=== PATIENT | male | born 1950 | race Caucasian/White ===

== ENCOUNTER 2017-01-29 18:46 | Emergency (ER) | payer OTHER ==
--- NOTE | 2017-01-29 19:22 | EDM.PDOC ---
ED HPI GENERAL MEDICAL PROBLEM - General Chief Complaint: Upper Extremity Injury/Pain Stated Complaint: UPPER L ARM PAIN Time Seen by Provider: 01/29/17 19:01 Source of Information: Reports: Patient, Family (), RN Notes Reviewed History Limitations: Reports: Physical Impairment (Hard of hearing) - History of Present Illness INITIAL COMMENTS - FREE TEXT/NARRATIVE: The patient states that he developed left biceps pain, sudden onset around 17: 00 tonight while playing a game on a computer. He describes it as a "bothersome pain" or "achy". He states that it is a pain, not discomfort. It is constant, however, he states that it has decreased since arriving to the ED, and is now minimal. He denies having any associated nausea, dyspnea, or sense of impending doom, but he states that he had diaphoresis while eating dinner. The patient states that he did not try any home treatments or remedies. The patient states that he has had similar symptoms previous to, but they are usually brief. He does not know how long he has had these symptoms. The patient's PCP is Yovana Chapin. Left Arm Pain Score (Numeric/FACES): 6 - Related Data Allergies Allergy/AdvReac Type Severity Reaction Status Date / Time statin drugs Allergy Muscle Uncoded 01/29/17 18:55 Aches Home Meds: Home Meds Aspirin [Halfprin] 81 mg PO DAILY 01/29/17 [History] Fish Oil/[place]-3 Fatty Acids [Fish Oil] 1,000 mg PO BID 01/29/17 [History] Gemfibrozil [Gemfibrozil] 600 mg PO BID 01/29/17 [History] Losartan/Hydrochlorothiazide [Losartan-HCTZ 100-25 MG] 1 tab PO DAILY 01/29/17 [ History] Omeprazole 20 mg PO DAILY 01/29/17 [History] Saxagliptin HCl [Onglyza] 2.5 mg PO DAILY 01/29/17 [History] Past Medical History Cardiovascular History: Reports: High Cholesterol, Hypertension Gastrointestinal History: Reports: GERD Genitourinary History: Reports: Renal Calculus Endocrine/Metabolic History: Reports: Diabetes, Type II Oncologic (Cancer) History: Reports: Prostate - Past Surgical History Musculoskeletal Surgical History: Reports: Other (See Below) (Right knee, open) Oncologic Surgical History: Reports: Other (See Below) (Radical prostatectomy) Social & Family History - Tobacco Use Smoking Status *Q: Never Smoker - Alcohol Use Alcohol Use History: Yes Alcohol Use Frequency: Socially - Recreational Drug Use Recreational Drug Use: No - Living Situation & Occupation Living situation: Reports: , with Spouse, with Family (Son) Occupation: Employed ([employer]) Review of Systems - Review of Systems Review Of Systems: See Below Constitutional: Reports: No Symptoms Eyes: Reports: No Symptoms Ears: Reports: No Symptoms Nose: Reports: No Symptoms Mouth/Throat: Reports: No Symptoms Respiratory: Reports: No Symptoms Cardiovascular: Reports: No Symptoms GI/Abdominal: Reports: No Symptoms Genitourinary: Reports: No Symptoms Musculoskeletal: Reports: No Symptoms Skin: Reports: No Symptoms Neurological: Reports: No Symptoms Psychiatric: Reports: No Symptoms ED EXAM, GENERAL - Physical Exam Exam: See Below Exam Limited By: No Limitations General Appearance: Alert, WD/WN, No Apparent Distress Eye Exam: Bilateral Eye: Normal Inspection Ears: Normal External Exam, Hearing Grossly Normal Nose: Normal Inspection, No Blood Throat/Mouth: Normal Inspection, Normal Lips, Normal Voice, No Airway Compromise Head: Atraumatic, Normocephalic Neck: Normal Inspection, Full Range of Motion Respiratory/Chest: No Respiratory Distress, Lungs Clear, Normal Breath Sounds, No Accessory Muscle Use Cardiovascular: Normal Peripheral Pulses, Regular Rate, Rhythm, No Gallop, No JVD, No Murmur, No Rub Peripheral Pulses: 4+: Radial (L), Radial (R) GI/Abdominal: Normal Bowel Sounds, Soft, Non-Tender, No Organomegaly, No Distention, No Abnormal Bruit, No Mass (Male) Exam: Deferred Rectal (Males) Exam: Deferred Back Exam: Normal Inspection, Full Range of Motion, NT Extremities: Normal Inspection, Normal Range of Motion, No Pedal Edema, Normal Capillary Refill, Other (The patient's left biceps muscle is tender, but he states that it is not the same sensation that brings him in.) Neurological: Alert, Oriented, Normal Cognition, No Motor/Sensory Deficits Psychiatric: Normal Affect Skin Exam: Warm, Dry, Intact, Normal Color, No Rash EKG INTERPRETATION EKG Date: 01/29/17 Time: 18:53 Rhythm: NSR Rate (Beats/Min): 63 Admire: Normal P-Wave: Present QRS: Normal ST-T: Normal QT: Normal Comparison: NA - No Prior EKG EKG Interpretation Comments: Repeat ECG at 91:25: Sinus bradycardia at [address] or T wave changes. No LAD. No LVH. No intraventricular conduction delays. No significant change from earlier ECG 01/29/2017 at 18:53. Course - Vital Signs Last Recorded V/S: Last Vital Signs Temp 36.9 C 01/29/17 18:55 Pulse 62 01/29/17 18:55 Resp 15 01/29/17 18:55 BP 127/73 01/29/17 18:55 Pulse Ox 98 01/29/17 18:55 - Orders/Labs/Meds Orders: Active Orders 24 hr Category Date Time Status EKG Documentation Completion [RC] STAT Care 01/29/17 19:02 Active EKG Documentation Completion [RC] STAT Care 01/29/17 21:15 Active Chest 2V [CR] Stat Exams 01/29/17 19:16 Taken Labs: Laboratory Tests 01/29/17 01/29/17 01/29/17 Range/Units 19:50 19:50 19:50 WBC 7.18 (4.23-9.07) K/mm3 RBC 4.22 L (4.63-6.08) M/mm3 Hgb 12.7 L (13.7-17.5) gm/L Hct 38.9 L (40.1-51.0) % MCV 92.2 (79.0-92.2) fl MCH 30.1 (25.7-32.2) pg MCHC 32.6 (32.2-35.5) g/dl RDW Std Deviation 43.5 (35.1-43.9) fL Plt Count 303 (163-337) K/mm3 MPV 9.9 (9.4-12.3) fl Neutrophils % (Manual) 68 H (40-60) % Band Neutrophils % 0 (0-10) % Lymphocytes % (Manual) 20 (20-40) % Atypical Lymphs % 0 % Monocytes % (Manual) 7 (2-10) % Eosinophils % (Manual) 5 (0.8-7.0) % Basophils % (Manual) 0 L (0.2-1.2) Platelet Estimate Adequate RBC Morph Comment Normal PT 12.1 (8.0-13.0) SECONDS INR 1.10 APTT 23 (22-36) SECONDS D-Dimer, Quantitative 0.27 (0.19-0.59) mg/L Sodium 142 (136-145) mEq/L Potassium 3.9 (3.5-5.1) mEq/L Chloride 103 (98-107) mEq/L Carbon Dioxide 30 (21-32) mEq/L Anion Gap 12.9 (5-15) BUN 23 H (7-18) mg/dL Creatinine 1.2 (0.7-1.3) mg/dL Est Cr Clr Drug Dosing 64.21 mL/min Estimated GFR (MDRD) > 60 (>60) mL/min BUN/Creatinine Ratio 19.2 H (14-18) Glucose 144 H (80-115) mg/dL Calcium 9.9 (8.5-10.1) mg/dL Total Bilirubin 0.3 (0.2-1.0) mg/dL AST 28 (15-37) U/L ALT 30 (16-63) U/L Alkaline Phosphatase 59 (46-116) U/L Troponin I < 0.017 (0.00-0.056) ng/mL NT-Pro-B Natriuret Pep 37 (0-125) pg/mL Total Protein 7.5 (6.4-8.2) g/dl Albumin 3.9 (3.4-5.0) g/dl Globulin 3.6 gm/dL Albumin/Globulin Ratio 1.1 (1-2) 10/10/17 Range/Units 21:30 WBC (4.23-9.07) K/mm3 RBC (4.63-6.08) M/mm3 Hgb (13.7-17.5) gm/L Hct (40.1-51.0) % MCV (79.0-92.2) fl MCH (25.7-32.2) pg MCHC (32.2-35.5) g/dl RDW Std Deviation (35.1-43.9) fL Plt Count (163-337) K/mm3 MPV (9.4-12.3) fl Neutrophils % (Manual) (40-60) % Band Neutrophils % (0-10) % Lymphocytes % (Manual) (20-40) % Atypical Lymphs % % Monocytes % (Manual) (2-10) % Eosinophils % (Manual) (0.8-7.0) % Basophils % (Manual) (0.2-1.2) Platelet Estimate RBC Morph Comment PT (8.0-13.0) SECONDS INR APTT (22-36) SECONDS D-Dimer, Quantitative (0.19-0.59) mg/L Sodium (136-145) mEq/L Potassium (3.5-5.1) mEq/L Chloride (98-107) mEq/L Carbon Dioxide (21-32) mEq/L Anion Gap (5-15) BUN (7-18) mg/dL Creatinine (0.7-1.3) mg/dL Est Cr Clr Drug Dosing mL/min Estimated GFR (MDRD) (>60) mL/min BUN/Creatinine Ratio (14-18) Glucose (80-115) mg/dL Calcium (8.5-10.1) mg/dL Total Bilirubin (0.2-1.0) mg/dL AST (15-37) U/L ALT (16-63) U/L Alkaline Phosphatase (46-116) U/L Troponin I < 0.017 (0.00-0.056) ng/mL NT-Pro-B Natriuret Pep (0-125) pg/mL Total Protein (6.4-8.2) g/dl Albumin (3.4-5.0) g/dl Globulin gm/dL Albumin/Globulin Ratio (1-2) - Re-Assessments/Exams Free Text/Narrative Re-Assessment/Exam: 01/29/17 21:02 Two-view chest radiograph appears to be grossly normal. Cardiac silhouette is within normal limits. No pulmonary vascular congestion. No pleural effusions. No focal infiltrate. No pneumothorax. Formal read per the Radiologist pending. 01/29/17 21:15 The patient's initial workup is unremarkable, with exception of a blood glucose mildly elevated 144, however, the patient has a known history of diabetes. I would like to make sure that the patient's left bicep pain does not represent an unusual cardiac presentation, therefore I have ordered a second troponin, now over 4 hours past the onset of the symptoms, along with a repeat ECG. If these are both negative, then the patient may safely be discharged home. 01/29/17 22:13 Test results discussed with the patient is white. His workup is entirely unremarkable, with exception of, as above, his blood glucose being mildly elevated at 144. The patient states that he rarely checks his blood sugar - the last time was or Saturday, and was 93. The patient's left arm pain does not appear to be cardiac in etiology, although , since the patient has diabetes, I'm recommending that he follow up with his PCP to discuss the option of an outpatient stress test. Departure - Departure Time of Disposition: 22:14 Disposition: Home, Self-Care 01 Condition: Good Clinical Impression: Left upper arm pain - Discharge Information Referrals: Yovana Chapin PA-C [Primary Care Provider] - Forms: ED Department Discharge Additional Instructions: You were seen in the emergency room for left upper arm pain. Workup in the ER included blood work, 2 sets of heart enzymes, a chest x-ray, and 2 ECGs. With the exception of your blood sugar being elevated at 144, the remainder of your workup was entirely unremarkable. Because of your left upper arm pain is MOST LIKELY a muscle strain, but since you have diabetes, you should talk to your PCP, Ms. Chapin, about getting a stress test. If any other problems, please do not hesitate to return to the ER. - My Orders Last 24 Hours: My Active Orders 01/29/17 19:02 EKG Documentation Completion [RC] STAT 01/29/17 19:16 Chest 2V [CR] Stat 01/29/17 21:15 EKG Documentation Completion [RC] STAT - Assessment/Plan Last 24 Hours: My Active Orders 01/29/17 19:02 EKG Documentation Completion [RC] STAT 01/29/17 19:16 Chest 2V [CR] Stat 01/29/17 21:15 EKG Documentation Completion [RC] STAT
--- NOTE | 2017-01-30 08:22 | CR ---
Chest: Two views of the chest were obtained. Comparison: Previous chest x-ray of 10/18/11. Heart size and mediastinum are normal. Lungs are clear. Bony structures are within normal limits. Impression: 1. Nothing acute is appreciated on two-view chest x-ray. Diagnostic code #2
== END 2017-01-29 22:26 | disposition home or self-care (01) ==
LOC: JD.ED 18:46
DX: M79.622 Pain in left upper arm (principal); I10 Essential (primary) hypertension; E78.00 Pure hypercholesterolemia, unspecified; K21.9 Gastro-esophageal reflux disease without esophagitis; E11.9 Type 2 diabetes mellitus without complications; Z98.890 Other specified postprocedural states; Z85.46 Personal history of malignant neoplasm of prostate; Z90.79 Acquired absence of other genital organ(s); Z79.82 Long term (current) use of aspirin; Z79.899 Other long term (current) drug therapy; Z88.8 Allergy status to other drugs, medicaments and biological substances
CPT/HCPCS: 36415; 71020; 71020-26; 80053; 83880; 84484; 85025; 85379; 85610; 85730; 93005; 93010; 99284-25

== ENCOUNTER 2020-03-26 15:09 | Emergency (ER) | payer MEDICARE, BC ==
--- NOTE | 2020-03-26 16:31 | EDM.PDOC ---
ED HPI GENERAL MEDICAL PROBLEM - General Chief Complaint: Abdominal Pain Stated Complaint: LOW ABDOMINAL AND BACK PAIN Time Seen by Provider: 03/26/20 16:21 - History of Present Illness INITIAL COMMENTS - FREE TEXT/NARRATIVE: 69-year-old male presents the emergency room with abdominal pain. Patient has had generalized abdominal pain and back pain. This is not associated with nausea vomiting or diarrhea. He has had some mild constipation. Has not had any fevers or chills. The patient has been evaluated for this in the past and nothing has really been found on his work-ups. This was several years ago got better on its own. Lower Abdomen Pain Score (Numeric/FACES): 7 - Related Data Allergies Allergy/AdvReac Type Severity Reaction Status Date / Time atorvastatin AdvReac Muscle Verified 03/26/20 15:20 Aches pravastatin AdvReac Muscle Verified 03/26/20 15:20 Aches rosuvastatin AdvReac Muscle Verified 03/26/20 15:20 Aches Home Meds: Home Meds Aspirin [Halfprin] 81 mg PO DAILY 01/29/17 [History] Fish Oil/[place]-3 Fatty Acids [Fish Oil] 1,000 mg PO BID 01/29/17 [History] Gemfibrozil 600 mg PO BID 01/29/17 [History] Iron 18 mg PO DAILY 03/26/20 [History] Losartan/Hydrochlorothiazide [Losartan-HCTZ 100-25 MG] 1 each PO DAILY 03/26/20 [History] Multivitamin/Iron/Folic Acid [Cent[place] Complete Multivit] 1 each PO DAILY 03/26/20 [History] metFORMIN [Glucophage] 500 mg PO DAILY 03/26/20 [History] Past Medical History HEENT History: Reports: Impaired Vision Cardiovascular History: Reports: High Cholesterol, Hypertension Gastrointestinal History: Reports: GERD Genitourinary History: Reports: Renal Calculus Endocrine/Metabolic History: Reports: Diabetes, Type II Oncologic (Cancer) History: Reports: Prostate - Past Surgical History Musculoskeletal Surgical History: Reports: Other (See Below) Oncologic Surgical History: Reports: Other (See Below) Social & Family History - Tobacco Use Tobacco Use Status *Q: Never Tobacco User - Recreational Drug Use Recreational Drug Use: No - Living Situation & Occupation Living situation: Reports: , with Spouse, with Family (Son) Occupation: Employed ([employer]) ED ROS GENERAL - Review of Systems Review Of Systems: See Below Constitutional: Reports: No Symptoms HEENT: Reports: No Symptoms Respiratory: Reports: No Symptoms, Cough GI/Abdominal: Reports: Abdominal Pain, Constipation. Denies: Diarrhea, Nausea, Vomiting : Reports: No Symptoms Musculoskeletal: Reports: Back Pain (Vague) ED EXAM, GI/ABD - Physical Exam Exam: See Below Exam Limited By: No Limitations General Appearance: Alert, No Apparent Distress Head: Atraumatic, Normocephalic Neck: Normal Inspection, Supple, Non-Tender, Full Range of Motion Respiratory/Chest: No Respiratory Distress, Lungs Clear, Normal Breath Sounds Cardiovascular: Regular Rate, Rhythm, No Edema, No Murmur GI/Abdominal Exam: Normal Bowel Sounds, Soft, Other (Vague discomfort seems to be worse at the abdominal wall musculature where it inserts into the ribs). No: Guarding, Rigid, Rebound Back Exam: Normal Inspection, Other (Possible triggers of his discomfort the pain seems to be a little deeper than his back). No: Vertebral Tenderness Extremities: Normal Inspection, No Pedal Edema Course - Vital Signs Last Recorded V/S: Last Vital Signs Temp 36.2 C 03/26/20 15:17 Pulse 61 03/26/20 15:17 Resp 16 03/26/20 15:17 BP 145/85 H 03/26/20 15:17 Pulse Ox 95 03/26/20 15:17 - Orders/Labs/Meds Labs: Laboratory Tests 03/26/20 03/26/20 03/26/20 Range/Units 15:25 16:45 16:45 WBC 4.93 (4.23-9.07) K/mm3 RBC 4.32 L (4.63-6.08) M/mm3 Hgb 13.1 L (13.7-17.5) gm/dl Hct 40.5 (40.1-51.0) % MCV 93.8 H (79.0-92.2) fl MCH 30.3 (25.7-32.2) pg MCHC 32.3 (32.2-35.5) g/dl RDW Std Deviation 44.3 H (35.1-43.9) fL Plt Count 277 (163-337) K/mm3 MPV 9.7 (9.4-12.3) fl Neut % (Auto) 63.4 (34.0-67.9) % Lymph % (Auto) 20.3 L (21.8-53.1) % [place] % (Auto) 10.8 (5.3-12.2) % Eos % (Auto) 4.1 (0.8-7.0) Baso % (Auto) 1.0 (0.1-1.2) % Neut # (Auto) 3.13 (1.78-5.38) K/mm3 Lymph # (Auto) 1.00 L (1.32-3.57) K/mm3 [place] # (Auto) 0.53 (0.30-0.82) K/mm3 Eos # (Auto) 0.20 (0.04-0.54) K/mm3 Baso # (Auto) 0.05 (0.01-0.08) K/mm3 Sodium 141 (136-145) mEq/L Potassium 3.9 (3.5-5.1) mEq/L Chloride 104 (98-107) mEq/L Carbon Dioxide 29 (21-32) mEq/L Anion Gap 11.9 (5-15) BUN 23 H (7-18) mg/dL Creatinine 1.2 (0.7-1.3) mg/dL Est Cr Clr Drug Dosing 61.68 mL/min Estimated GFR (MDRD) > 60 (>60) mL/min BUN/Creatinine Ratio 19.2 H (14-18) Glucose 99 (80-115) mg/dL Calcium 9.8 (8.5-10.1) mg/dL Total Bilirubin 0.3 (0.2-1.0) mg/dL AST 22 (15-37) U/L ALT 31 (16-63) U/L Alkaline Phosphatase 48 (46-116) U/L Total Protein 7.4 (6.4-8.2) g/dl Albumin 4.0 (3.4-5.0) g/dl Globulin 3.4 gm/dL Albumin/Globulin Ratio 1.2 (1-2) Lipase 65 L (73-393) U/L Urine Color Yellow (Yellow) Urine Appearance Clear (Clear) Urine pH 6.0 (5.0-8.0) Ur Specific [place] > or = 1.030 (1.005-1.030) Urine Protein Negative (Negative) Urine Glucose (UA) Negative (Negative) Urine Ketones Negative (Negative) Urine Occult Blood Trace-lysed H (Negative) Urine Nitrite Negative (Negative) Urine Bilirubin Negative (Negative) Urine Urobilinogen 0.2 (0.2-1.0) Ur Leukocyte Esterase Negative (Negative) Urine RBC 0-5 (0-5) /hpf Urine WBC 0-5 (0-5) /hpf Ur Squamous Epith Cells 0-5 (0-5) /hpf Urine Bacteria Not seen (FEW) /hpf Urine Mucus Few (FEW) /hpf - Re-Assessments/Exams Free Text/Narrative Re-Assessment/Exam: 03/26/20 17:50 Laboratory evaluation is unremarkable abdominal x-ray shows fairly full stool pattern I did discuss the findings with the patient and will have him use Tylenol for discomfort and MiraLAX on a regular basis has been using this intermittently. Departure - Departure Time of Disposition: 17:51 Disposition: Home, Self-Care 01 Clinical Impression: Abdominal pain, Abdominal wall strain, Constipation, Asymptomatic microscopic hematuria - Discharge Information Referrals: Yovana Chapin PA-C [Primary Care Provider] - Forms: ED Department Discharge Additional Instructions: Return to the emergency room with any questions problems or worsening symptoms. Follow-up with your regular healthcare provider this next week for recheck. Use MiraLAX every day. Your laboratory evaluation showed that you have a few blood cells in your urine this needs to be followed up on and make sure it resolves Sepsis Event Note (ED) - Evaluation Sepsis Screening Result: No Definite Risk - Focused Exam Vital Signs: Vital Signs Temp Pulse Resp BP Pulse Ox 03/26/20 15:17 36.2 C 61 16 145/85 H 95
--- NOTE | 2020-03-26 17:37 | CR ---
Abdomen: Supine and upright views of the abdomen were obtained. Comparison: Prior CT abdomen and pelvis study of 05/19/19 and prior abdominal x-ray of 02/11/18. Findings: Bowel gas: Slight increased stool within the colon is noted. Numerous clips are seen within the pelvis. No abnormal calcifications are seen. No free air is seen. Osseous: Bony structures show scattered degenerative changes without acute abnormality. Impression: 1. Slight increased stool within the colon. 2. Other findings which are believed to be incidental. Diagnostic code #2
== END 2020-03-26 18:00 | disposition home or self-care (01) ==
LOC: JD.ED 15:09
DX: S39.011A Strain of muscle, fascia and tendon of abdomen, initial encounter (principal); K59.00 Constipation, unspecified; I10 Essential (primary) hypertension; R31.21 Asymptomatic microscopic hematuria; E11.9 Type 2 diabetes mellitus without complications; Z88.8 Allergy status to other drugs, medicaments and biological substances; Z79.82 Long term (current) use of aspirin; Z79.899 Other long term (current) drug therapy; Z79.84 Long term (current) use of oral hypoglycemic drugs; X58.XXXA Exposure to other specified factors, initial encounter
CPT/HCPCS: 36415; 74019; 74019-26; 80053; 81001; 83690; 85025; 99283; 99284-25

== ENCOUNTER 2020-09-21 10:17 | Emergency (ER) | payer MEDICARE, BC ==
[2020-09-21] MEDS ORDERED: Aspirin 81 MG Tab.Chew PO ONE (10:31)
[2020-09-21] MEDS ORDERED: Sodium Chloride 0.9% 10 ML Syringe FLUSH PRN (10:31)
[2020-09-21] MEDS ORDERED: Nitroglycerin 0.4 MG Tab.SL SL ONE (10:32)
[2020-09-21] MEDS ORDERED: Famotidine 20 MG/2 ML SDV IVPUSH ONE (10:32)
--- NOTE | 2020-09-21 11:18 | CR ---
Chest: Portable view of the chest was obtained. Comparison: Prior chest x-ray of 03/10/19. Heart size and mediastinum are within normal limits. Lungs show no acute parenchymal change. No acute osseous abnormality is appreciated. Prior study showed a possible granuloma within the right upper lung which is not well seen on current study. Impression: 1. Nothing acute is appreciated on portable chest x-ray. Diagnostic code #1
--- NOTE | 2020-09-21 11:51 | EDM.PDOC ---
ED HPI GENERAL MEDICAL PROBLEM - General Chief Complaint: Chest Pain Stated Complaint: CHEST PAIN Time Seen by Provider: 09/21/20 10:21 Source of Information: Reports: Patient History Limitations: Reports: No Limitations - History of Present Illness INITIAL COMMENTS - FREE TEXT/NARRATIVE: The patient presents with chest pain. This has been going on for a couple of days. The pain comes and goes. He also has pain in both shoulders at times. He has no shortness of breath or cough with it. He has no fever, chills, nausea or vomiting. He says he has had reflux before and he is wondering if it is related. He has no history of heart disease. He does have a history of hypertension and hypercholesterolemia. He does not smoke. Onset: Gradual Duration: Day(s): Location: Reports: Chest Quality: Reports: Sharp Severity: Moderate Improves with: Reports: None Worsens with: Reports: None Associated Symptoms: Reports: Chest Pain. Denies: Cough chest Pain Score (Numeric/FACES): 3 - Related Data Allergies Allergy/AdvReac Type Severity Reaction Status Date / Time atorvastatin AdvReac Muscle Verified 09/21/20 10:26 Aches pravastatin AdvReac Muscle Verified 09/21/20 10:26 Aches rosuvastatin AdvReac Muscle Verified 09/21/20 10:26 Aches Home Meds: Home Meds Aspirin [Halfprin] 81 mg PO DAILY 01/29/17 [History] Fish Oil/[place]-3 Fatty Acids [Fish Oil] 1,000 mg PO BID 01/29/17 [History] Gemfibrozil 600 mg PO BID 01/29/17 [History] Iron 18 mg PO DAILY 03/26/20 [History] Losartan/Hydrochlorothiazide [Losartan-HCTZ 100-25 MG] 1 each PO DAILY 03/26/20 [History] Multivitamin/Iron/Folic Acid [Centrum Complete Multivit] 1 each PO DAILY 03/26/20 [History] metFORMIN [Glucophage] 500 mg PO DAILY 03/26/20 [History] Past Medical History HEENT History: Reports: Impaired Vision Cardiovascular History: Reports: High Cholesterol, Hypertension Gastrointestinal History: Reports: GERD Genitourinary History: Reports: Renal Calculus Endocrine/Metabolic History: Reports: Diabetes, Type II Oncologic (Cancer) History: Reports: Prostate - Past Surgical History Musculoskeletal Surgical History: Reports: Other (See Below) Oncologic Surgical History: Reports: Other (See Below) Social & Family History - Tobacco Use Tobacco Use Status *Q: Never Tobacco User - Recreational Drug Use Recreational Drug Use: No - Living Situation & Occupation Living situation: Reports: , with Spouse, with Family (Son) Occupation: Employed ([employer]) ED ROS GENERAL - Review of Systems Review Of Systems: See Below Constitutional: Reports: No Symptoms HEENT: Reports: No Symptoms Respiratory: Reports: No Symptoms Cardiovascular: Reports: Chest Pain Endocrine: Reports: No Symptoms GI/Abdominal: Reports: No Symptoms : Reports: No Symptoms Musculoskeletal: Reports: Shoulder Pain ED EXAM, GENERAL - Physical Exam Exam: See Below Exam Limited By: No Limitations General Appearance: Alert, No Apparent Distress Ears: Normal External Exam Nose: Normal Inspection Head: Atraumatic, Normocephalic Neck: Normal Inspection Respiratory/Chest: No Respiratory Distress, Lungs Clear, Normal Breath Sounds Cardiovascular: Regular Rate, Rhythm, No Edema, No Murmur GI/Abdominal: Soft, Non-Tender, No Organomegaly, No Mass Back Exam: Normal Inspection Extremities: Normal Inspection Neurological: Alert, Oriented, No Motor/Sensory Deficits #1 Interpretation EKG Date: 09/21/20 Time: 10:24 Rhythm: NSR Rate (Beats/Min): 68 Pray: Normal P-Wave: Present QRS: RBBB ST-T: Normal QT: Normal Course - Vital Signs Last Recorded V/S: Last Vital Signs Temp 96.9 F 09/21/20 10:21 Pulse 72 09/21/20 10:21 Resp 14 09/21/20 10:21 BP 131/86 09/21/20 10:37 Pulse Ox 96 09/21/20 10:21 - Orders/Labs/Meds Orders: Active Orders 24 hr Category Date Time Status Cardiac Monitoring [RC] . DIRECTED Care 09/21/20 10:31 Active EKG Documentation Completion [RC] STAT Care 09/21/20 10:31 Active Peripheral IV Care [RC] . DIRECTED Care 09/21/20 10:31 Active TROPONIN I [CHEM] Stat Lab 09/21/20 12:55 Ordered Sodium Chloride 0.9% [Saline Flush] Med 09/21/20 10:31 Active 10 ml FLUSH ASDIRECTED PRN Peripheral IV Insertion Adult [OM.PC] Stat Oth 09/21/20 10:31 Ordered Medication Orders Sodium Chloride (Sodium Chloride 0.9% 10 Ml Syringe) 10 ml FLUSH ASDIRECTED PRN PRN Reason: Keep Vein Open Last Admin: 09/21/20 10:38 Dose: 10 ml Documented by: DOROTHY Labs: Laboratory Tests 09/21/20 09/21/20 09/21/20 Range/Units 10:20 10:20 10:41 WBC 4.88 (4.23-9.07) K/mm3 RBC 4.57 L (4.63-6.08) M/mm3 Hgb 13.7 (13.7-17.5) gm/dl Hct 42.0 (40.1-51.0) % MCV 91.9 (79.0-92.2) fl MCH 30.0 (25.7-32.2) pg MCHC 32.6 (32.2-35.5) g/dl RDW Std Deviation 46.9 H (35.1-43.9) fL Plt Count 331 (163-337) K/mm3 MPV 10.1 (9.4-12.3) fl Neut % (Auto) 61.2 (34.0-67.9) % Lymph % (Auto) 23.2 (21.8-53.1) % Wayne % (Auto) 10.5 (5.3-12.2) % Eos % (Auto) 4.1 (0.8-7.0) Baso % (Auto) 1.0 (0.1-1.2) % Neut # (Auto) 2.99 (1.78-5.38) K/mm3 Lymph # (Auto) 1.13 L (1.32-3.57) K/mm3 Wayne # (Auto) 0.51 (0.30-0.82) K/mm3 Eos # (Auto) 0.20 (0.04-0.54) K/mm3 Baso # (Auto) 0.05 (0.01-0.08) K/mm3 Sodium 140 (136-145) mEq/L Potassium 3.7 (3.5-5.1) mEq/L Chloride 102 (98-107) mEq/L Carbon Dioxide 25 (21-32) mEq/L Anion Gap 16.7 H (5-15) BUN 27 H (7-18) mg/dL Creatinine 1.3 (0.7-1.3) mg/dL Est Cr Clr Drug Dosing 56.93 mL/min Estimated GFR (MDRD) 55 (>60) mL/min BUN/Creatinine Ratio 20.8 H (14-18) Glucose 132 H (70-99) mg/dL Calcium 9.7 (8.5-10.1) mg/dL Total Bilirubin 0.6 (0.2-1.0) mg/dL AST 26 (15-37) U/L ALT 39 (16-63) U/L Alkaline Phosphatase 50 (46-116) U/L Troponin I < 0.017 (0.00-0.056) ng/mL Total Protein 8.1 (6.4-8.2) g/dl Albumin 4.3 (3.4-5.0) g/dl Globulin 3.8 gm/dL Albumin/Globulin Ratio 1.1 (1-2) SARS-CoV-2 RNA (ROBERT) Negative (NEGATIVE) Meds: Medications Generic Name Dose Route Start Last Admin Trade Name Monet PRN Reason Stop Dose Admin Sodium Chloride 10 ml 09/21/20 10:31 09/21/20 10:38 Sodium Chloride 0.9% 10 Ml Syringe FLUSH 10 ml ASDIRECTED PRN Administration Keep Vein Open Discontinued Medications Generic Name Dose Route Start Last Admin Trade Name Monet PRN Reason Stop Dose Admin Aspirin 324 mg 09/21/20 10:31 09/21/20 10:37 Aspirin 81 Mg Tab.Chew PO 09/21/20 10:32 324 mg ONETIME ONE Administration Al Hydroxide/Mg Hydroxide 30 0 ml 09/21/20 12:02 09/21/20 12:06 ml/ Lidocaine HCl 15 ml PO 09/21/20 12:03 1 ml ONETIME ONE Administration Famotidine 20 mg 09/21/20 10:32 09/21/20 10:37 Famotidine 20 Mg/2 Ml Sdv IVPUSH 09/21/20 10:33 20 mg ONETIME ONE Administration Nitroglycerin 0.4 mg 09/21/20 10:32 09/21/20 10:37 Nitroglycerin 0.4 Mg Tab.Sl SL 09/21/20 10:33 0.4 mg ONETIME ONE Administration - Re-Assessments/Exams Free Text/Narrative Re-Assessment/Exam: 09/21/20 11:56 I ordered an IV saline lock, EKG, aspirin, nitro, pepcid 20mg IV, labs, and CXR. His EKG shows a NSR with no acute changes. His CBC and CMP look good. His troponin is negative. His CXR looks good. 09/21/20 12:55 I tried a GI cocktail and that did not change anything. I will do a repeat troponin. Departure - Departure Time of Disposition: 13:05 Disposition: Home, Self-Care 01 Condition: Good Clinical Impression: Atypical chest pain Referrals: Yovana Chapin PA-C [Primary Care Provider] - 1 Week Forms: ED Department Discharge Additional Instructions: Take your medication as prescribed. Take tylenol or motrin for pain. Please return if you are worse. Follow up with your doctor within a week. Sepsis Event Note (ED) - Evaluation Sepsis Screening Result: No Definite Risk - Focused Exam Vital Signs: Vital Signs Temp Pulse Resp BP BP Pulse Ox 09/21/20 10:37 131/86 09/21/20 10:21 96.9 F 72 14 148/85 H 96 - My Orders Last 24 Hours: My Active Orders 09/21/20 10:31 Cardiac Monitoring [RC] . DIRECTED EKG Documentation Completion [RC] STAT Peripheral IV Care [RC] . DIRECTED Sodium Chloride 0.9% [Saline Flush] 10 ml FLUSH ASDIRECTED PRN Peripheral IV Insertion Adult [OM.PC] Stat 09/21/20 12:55 TROPONIN I [CHEM] Stat - Assessment/Plan Last 24 Hours: My Active Orders 09/21/20 10:31 Cardiac Monitoring [RC] . DIRECTED EKG Documentation Completion [RC] STAT Peripheral IV Care [RC] . DIRECTED Sodium Chloride 0.9% [Saline Flush] 10 ml FLUSH ASDIRECTED PRN Peripheral IV Insertion Adult [OM.PC] Stat 09/21/20 12:55 TROPONIN I [CHEM] Stat
[2020-09-21] MEDS ORDERED: Alum Hydrox/Mag Hydrox/Simeth 30 ML, Lidocaine 2% 15 ML PO ONE ×2 (12:02)
== END 2020-09-21 13:25 | disposition home or self-care (01) ==
LOC: JD.ED 10:17
DX: R07.89 Other chest pain (principal); E78.00 Pure hypercholesterolemia, unspecified; I10 Essential (primary) hypertension; E11.9 Type 2 diabetes mellitus without complications; Z79.82 Long term (current) use of aspirin; Z79.84 Long term (current) use of oral hypoglycemic drugs; Z20.822 Contact with and (suspected) exposure to COVID-19; Z88.8 Allergy status to other drugs, medicaments and biological substances
CPT/HCPCS: 36415; 71045; 80053; 84484; 85025; 93005; 96374; 99285; A9270; J3490; U0002; 93010; 99284

== ENCOUNTER 2021-11-25 12:19 | Emergency (ER) | payer MEDICARE, BC | END 2021-11-25 13:18 | disposition home or self-care (01) | LOC: JD.ED 12:19 | DX: G44.89 Other headache syndrome (principal); E78.00 Pure hypercholesterolemia, unspecified; I10 Essential (primary) hypertension; E11.9 Type 2 diabetes mellitus without complications; K21.9 Gastro-esophageal reflux disease without esophagitis; Z88.8 Allergy status to other drugs, medicaments and biological substances; Z79.82 Long term (current) use of aspirin; Z79.84 Long term (current) use of oral hypoglycemic drugs; Z79.899 Other long term (current) drug therapy | CPT/HCPCS: 99283 ==

== ENCOUNTER 2023-04-14 20:30 | Emergency (ER) | payer MEDICARE, BC ==
[2023-04-14] MEDS ORDERED: Lidocaine 4% Crm 5 Gm with Transparent Dressing Kit TOP ONE (20:50)
[2023-04-14] MEDS ORDERED: Lidocaine 1% 10 ML MDV INJECT ONE (20:51)
== END 2023-04-14 21:31 | disposition home or self-care (01) ==
LOC: JD.ED 20:30
DX: M79.89 Other specified soft tissue disorders (principal); I10 Essential (primary) hypertension; E78.00 Pure hypercholesterolemia, unspecified; E11.9 Type 2 diabetes mellitus without complications; Z88.8 Allergy status to other drugs, medicaments and biological substances; Z79.82 Long term (current) use of aspirin; Z79.84 Long term (current) use of oral hypoglycemic drugs; Z79.899 Other long term (current) drug therapy
CPT/HCPCS: 10160; 73630-26-LT; 73630-LT; 87070; 87075; 87205; 99283; J3490

== ENCOUNTER 2024-01-21 06:31 | Day surgery (SDC) | payer MEDICARE ==
[~2024-01-21 06:31] MED LIST: Sodium Chloride 0.9% 10 ML Syringe FLUSH PRN; Sodium Chloride 0.9% 10 ML Syringe FLUSH SCH
[2024-01-21] MEDS: Lactated Ringers 1,000 ML IV SCH (06:45)
[2024-01-21] MEDS ORDERED: Propofol 200 MG/20 ML SDV ONE ×2 (07:05→07:06)
== END 2024-01-21 09:15 ==
LOC: JD.SDS 06:31
PROVIDERS: ATTEND Surgery
DX: Z12.11 Encounter for screening for malignant neoplasm of colon (principal); D12.3 Benign neoplasm of transverse colon; E11.9 Type 2 diabetes mellitus without complications; I10 Essential (primary) hypertension; K21.9 Gastro-esophageal reflux disease without esophagitis; E78.00 Pure hypercholesterolemia, unspecified; E03.9 Hypothyroidism, unspecified; E78.5 Hyperlipidemia, unspecified; Z79.82 Long term (current) use of aspirin; Z79.84 Long term (current) use of oral hypoglycemic drugs; Z79.899 Other long term (current) drug therapy; Z88.8 Allergy status to other drugs, medicaments and biological substances
CPT/HCPCS: 45380; 82947; 88305; J2704; J7120; 00811; 99100